=== PATIENT | male | born 1945 | race Asian ===

== ENCOUNTER 2016-10-30 10:45 | Outpatient (CLI) | payer OTHER | END 2016-10-30 19:13 | disposition home or self-care (01) | LOC: LABW 10:45 | DX: I77.71 Dissection of carotid artery (principal) | CPT/HCPCS: 36415; 82565; 84520 ==

== ENCOUNTER 2017-06-25 17:52 | Outpatient (CLI) | payer OTHER ==
[2017-06-25 20:06] LABS: POTASSIUM 3.6 mmol/L (3.6-5.2)
== END 2017-06-25 18:55 | disposition home or self-care (01) ==
LOC: LABW 17:52
PROVIDERS: Family Medicine
DX: R43.0 Anosmia (principal); E55.9 Vitamin D deficiency, unspecified
CPT/HCPCS: 36415; 80048; 82306; 82607; 83735; 84207; 84630